=== PATIENT | male | born 1960 | race Caucasian/White ===

== ENCOUNTER 2021-12-11 15:26 | Emergency (ER) | payer OTHER, SELFPAY ==
[2021-12-11 15:44] VITALS: BP 117/92; PULSE 105; RESP 18; TEMP 37.1; O2SAT 97; BMI 34.7
--- NOTE | 2021-12-11 15:49 | DI.RAD.S_ITS ---
PROCEDURE: XR ELBOW LT MIN 3V INDICATIONS: elbow vs metal bar TECHNIQUE: 3 views of the elbow were acquired. COMPARISON: None. FINDINGS: Bones: No fractures or dislocations. No suspicious bony lesions. Enthesophyte noted at the insertion of the triceps on the olecranon process Soft tissues: No elbow joint effusion. No suspicious soft tissue calcifications. Soft tissues swelling noted over the olecranon IMPRESSION: Soft tissue swelling without fracture or foreign body Approved by: Geo Flores M.D. on 12/11/2021 at 15:57
[2021-12-11 16:45] LABS: Add Manual Diff / Slide Review NO; Alanine Aminotransferase 66 IU/L (<50); Albumin 4.8 g/dL (3.5-5.0); Albumin Globulin Ratio 1.4 (1.0-2.8); Alkaline Phosphatase 71 U/L (38-126); Aspartate Aminotransferase 49 IU/L (17-59); BUN Creatinine Ratio 20.8 (6-22); Basophils Absolute Auto 100 /uL (0-100); Bilirubin Total 0.9 mg/dL (0.2-1.3); Blood Urea Nitrogen 15 mg/dL (9-20); Calcium 9.2 mg/dL (8.4-10.2); Carbon Dioxide 25 mmol/L (22-32); Chloride 98 mmol/L (98-107); Eosinophils Absolute Auto 600 /uL (0-450); Eosinophils Percent Auto 4.4 % (2-4); Estimated Glomerular Filt Rate > 60 mL/min (>60); Globulin 3.5 g/dL (1.7-4.1); Glucose 112 mg/dL (80-110); HEMOLYSIS < 15 (0-50); Hemoglobin 15.4 g/dL (13.5-17.5); Lipase 159 U/L (23-300); Lymphocytes Absolute Auto 2300 /uL (1100-4500); Lymphocytes Percent Auto 17.6 % (25-40); Mean Corpuscular HGB Conc 35.7 % (30-36); Mean Corpuscular Hemoglobin 31.8 PG (26-34); Mean Corpuscular Volume 89.2 fL (80-100); Monocytes Absolute Auto 1500 /uL (0-900); Monocytes Percent Auto 11.4 % (3-14); Neutrophils Absolute Auto 8600 /uL (1500-7000); Neutrophils Percent Auto 65.6 % (50-75); Platelet Count 291 X10^3/uL (150-400); Potassium 3.6 mmol/L (3.4-5.1); Red Blood Cell Count 4.82 X10^6/uL (4.5-5.9); Red Cell Distribution Width 13.1 % (11.6-14.8); Sodium 136 mmol/L (137-145); Total Protein 8.3 g/dL (6.3-8.2); White Blood Cell Count 13.1 X10^3/uL (4.5-11.0)
[2021-12-11 16:46] LABS: Lactate (Lactic Acid) 1.1 mmol/L (0.7-2.1)
[2021-12-11 17:02] LABS: Procalcitonin 0.06 ng/mL (<0.5)
[2021-12-11] MEDS: LIDOCAINE 2% INJ MDV 2 ML SUBCUT (18:33)
[2021-12-11 20:32] VITALS: BP 152/108; PULSE 102; RESP 18; O2SAT 96
[2021-12-11 20:38] LABS: Erythrocyte Sedimentation Rate 17 MM/HR (0-15)
--- NOTE | 2021-12-11 20:48 | ED.UPPEXIN ---
HPI - Extremity Injury (Upper) <DOROTHY Nguyen - Last Filed: 12/11/21 20:59> General Chief Complaint: Extremity Injury, Upper Stated Complaint: lt elbow pain, swelling, hot Time Seen by Provider: 12/11/21 17:08 Source: patient Mode of arrival: Ambulatory History of Present Illness HPI narrative: 61-year-old, nonsmoker, male presents to the emergency department with complaints of left elbow pain, redness and swelling secondary to hitting his elbow against a steel bar at work 4 days ago. Patient denies any break in the skin or known cause of infection. Patient endorses pain with movement or palpation. Related Data Previous Rx's Medication Instructions Recorded cephalexin 500 mg capsule 1,000 mg PO BID cellulitis 10 days 12/11/21 #40 caps Allergies Allergy/AdvReac Type Severity Reaction Status Date / Time Sulfa (Sulfonamide Allergy Intermediate Hives Verified 12/11/21 15:48 Antibiotics) Review of Systems <DOROTHY Nguyen - Last Filed: 12/11/21 20:59> Review of Systems Narrative: Narrative: GENERAL: Denies chills, fatigue, fever, sweats. See HPI HEENT: Denies sinus pain, ear pain, sore throat, difficulty swallowing, dizziness. RESPIRATORY: Denies dyspnea, cough, wheezing, sputum. CARDIOVASCULAR: Denies chest pain, palpitations, edema. GASTROINTESTINAL: Denies nausea, vomiting, abdominal pain, diarrhea, constipation. : Denies dysuria, frequency, incontinence, hematuria, urinary retention, flank pain. MSK: Endorses redness, swelling and pain of left elbow. SKIN: Denies rash, skin lesions, or pruritis. NEUROLOGIC: Denies weakness, dizziness, headache, numbness, confusion. PSYCHIATRIC: No concerning psychosocial issues. Patient History <DOROTHY Nguyen - Last Filed: 12/11/21 20:59> Social History Smoking Status: Never smoker Smoking Status: Never smoker alcohol intake frequency: 0-2 drinks per day Alcohol type: beer Substance Use Type: does not use Exam <DOROTHY Nguyen - Last Filed: 12/11/21 20:59> Narrative Exam Narrative: Exam Narrative: GENERAL: This is a well-nourished, well-developed patient, in no acute distress HEAD: Atraumatic. Normocephalic. EYES: Pupils equal round and reactive. Extraocular motions intact. No scleral icterus, injection or drainage. ENT: Nose without bleeding, purulent drainage. Throat without erythema, tonsillar hypertrophy or exudate. Airway patent. NECK: Trachea midline. No JVD or lymphadenopathy. Nontender. CARDIOVASCULAR: Regular rate and rhythm without murmurs, peripheral pulses intact, cap refill <2 sec. RESPIRATORY: Breath sounds equal and clear bilaterally. No wheezes, rales, or rhonchi. No cough. No increased respiratory effort. No accessory muscle use. GASTROINTESTINAL: Abdomen soft, non-tender, nondistended without guarding or rebound. No suprapubic pain. MSK: Moves all extremities. Decreased range of motion of left elbow. Site is red, warm and swollen. Neurovascularly intact. NEURO: A&O x 3. SKIN: Warm, dry, no rashes or lesions noted. Initial Vital Signs Initial Vital Signs: Vital Signs Temperature 98.7 F 12/11/21 15:44 Pulse Rate 105 H 12/11/21 15:44 Respiratory Rate 18 12/11/21 15:44 Blood Pressure 117/92 H 12/11/21 15:44 Pulse Oximetry 97 12/11/21 15:44 Oxygen Delivery Method 12/11/21 15:44 Reviewed Extrem Other: ELBOW: There is bruising and swelling but no asymmetry. There is no tenderness to palpation over the olecranon, medial epicondyle, lateral epicondyle. There is generalized soft tissue pain surrounding the left elbow. Sensation grossly intact. Range of motion is limited due to swelling and pain. Range of motion of the shoulder and wrist is intact. Patient is able to pronate and supinate without pain. Resistive strength for flexion and extension is intact. The contralateral elbow exam is unremarkable. <Bharath Arambula DO - Last Filed: 12/11/21 22:49> Initial Vital Signs Initial Vital Signs: Vital Signs Temperature 98.7 F 12/11/21 15:44 Pulse Rate 105 H 12/11/21 15:44 Respiratory Rate 18 12/11/21 15:44 Blood Pressure 117/92 H 12/11/21 15:44 Pulse Oximetry 97 12/11/21 15:44 Oxygen Delivery Method 12/11/21 15:44 Procedures <DOROTHY Nguyen - Last Filed: 12/11/21 20:59> Bursa Procedure Time Out Performed: Yes Side of body: left Site of Procedure: olecranon bursa XRAY Obtained: normal Antisepsis Used: Povidone-Iodine1% Local Anesthetic: lidocaine 2% Amount of anesthesia used (mL): 2 Fluid obtained (mL): 4 Fluid Type: clear Patient Tolerated Procedure: Well Course <DOROTHY Nguyen - Last Filed: 12/11/21 20:59> Orders Ordered: ED Orders 12/11/21 15:49 XR elbow LT min 3V Stat 12/11/21 16:15 CRP [C-Reactive Protein Quant] Stat Complete Blood Count AUTO DIFF Stat Comprehensive Metabolic Panel Stat ESR [Erythrocyte Sedimentation Rate] Stat Lactate (Lactic Acid) Stat Lipase Stat Procalcitonin Stat 12/11/21 16:35 Blood Culture Stat 12/11/21 18:43 Body Fluid Culture Stat Discontinued Medications Lidocaine HCl (Lidocaine 2% Inj Mdv) 2 ml SUBCUT NOW ONE Stop: 12/11/21 18:31 Last Admin: 12/11/21 18:33 Dose: 2 ml Documented By: RL Vital Signs Vital signs: Vital Signs - 8 hr 12/11/21 15:44 12/11/21 20:32 Temperature 98.7 F Pulse Rate 105 H 102 H Respiratory Rate 18 18 Blood Pressure 117/92 H 152/108 H Pulse Oximetry 97 96 Oxygen Delivery Method Room Air Room Air <Bharath Arambula DO - Last Filed: 12/11/21 22:49> Orders Ordered: ED Orders 12/11/21 15:49 XR elbow LT min 3V Stat 12/11/21 16:15 CRP [C-Reactive Protein Quant] Stat Complete Blood Count AUTO DIFF Stat Comprehensive Metabolic Panel Stat ESR [Erythrocyte Sedimentation Rate] Stat Lactate (Lactic Acid) Stat Lipase Stat Procalcitonin Stat 12/11/21 16:35 Blood Culture Stat 12/11/21 18:43 Body Fluid Culture Stat Discontinued Medications Lidocaine HCl (Lidocaine 2% Inj Mdv) 2 ml SUBCUT NOW ONE Stop: 12/11/21 18:31 Last Admin: 12/11/21 18:33 Dose: 2 ml Documented By: RL Vital Signs Vital signs: Vital Signs - 8 hr 12/11/21 15:44 12/11/21 20:32 Temperature 98.7 F Pulse Rate 105 H 102 H Respiratory Rate 18 18 Blood Pressure 117/92 H 152/108 H Pulse Oximetry 97 96 Oxygen Delivery Method Room Air Room Air MDM - Extremity Injury (Upper) <Bharath DOROTHY Barrios - Last Filed: 12/11/21 20:59> Differential Diagnosis Differential diagnosis: Likely other (Septic bursitis) Lab Data Result diagrams: 12/11/21 16:15 12/11/21 16:15 Labs: Lab Results 12/11/21 12/11/21 12/11/21 Range/Units 16:15 16:15 16:15 WBC 13.1 H (4.5-11.0) X10^3/uL RBC 4.82 (4.5-5.9) X10^6/uL Hgb 15.4 (13.5-17.5) g/dL Hct 43.0 (41-53) % MCV 89.2 (80-100) fL MCH 31.8 (26-34) PG MCHC 35.7 (30-36) % RDW 13.1 (11.6-14.8) % Plt Count 291 (150-400) X10^3/uL Neut % (Auto) 65.6 (50-75) % Lymph % (Auto) 17.6 L (25-40) % [place] % (Auto) 11.4 (3-14) % Eos % (Auto) 4.4 H (2-4) % Baso % (Auto) 1.0 (0-2) % Neut # (Auto) 8600 H (8140-6956) /uL Lymph # (Auto) 2300 (6649-8080) /uL [place] # (Auto) 1500 H (0-900) /uL Eos # (Auto) 600 H (0-450) /uL Baso # (Auto) 100 (0-100) /uL ESR (0-15) MM/HR Sodium 136 L (137-145) mmol/L Potassium 3.6 (3.4-5.1) mmol/L Chloride 98 (98-107) mmol/L Carbon Dioxide 25 (22-32) mmol/L BUN 15 (9-20) mg/dL Creatinine 0.72 (0.66-1.25) mg/dL Estimated GFR > 60 (>60) mL/min BUN/Creatinine Ratio 20.8 (6-22) Glucose 112 H (80-110) mg/dL Lactate 1.1 (0.7-2.1) mmol/L Calcium 9.2 (8.4-10.2) mg/dL Total Bilirubin 0.9 (0.2-1.3) mg/dL AST 49 (17-59) IU/L ALT 66 H (<50) IU/L Alkaline Phosphatase 71 (38-126) U/L C-Reactive Protein (<1.0) mg/dL Total Protein 8.3 H (6.3-8.2) g/dL Albumin 4.8 (3.5-5.0) g/dL Globulin 3.5 (1.7-4.1) g/dL Albumin/Globulin Ratio 1.4 (1.0-2.8) Lipase 159 (23-300) U/L Procalcitonin 0.06 (<0.5) ng/mL 12/11/21 12/11/21 Range/Units 16:15 16:15 WBC (4.5-11.0) X10^3/uL RBC (4.5-5.9) X10^6/uL Hgb (13.5-17.5) g/dL Hct (41-53) % MCV (80-100) fL MCH (26-34) PG MCHC (30-36) % RDW (11.6-14.8) % Plt Count (150-400) X10^3/uL Neut % (Auto) (50-75) % Lymph % (Auto) (25-40) % [place] % (Auto) (3-14) % Eos % (Auto) (2-4) % Baso % (Auto) (0-2) % Neut # (Auto) (5925-1382) /uL Lymph # (Auto) (1624-9352) /uL [place] # (Auto) (0-900) /uL Eos # (Auto) (0-450) /uL Baso # (Auto) (0-100) /uL ESR 17 H (0-15) MM/HR Sodium (137-145) mmol/L Potassium (3.4-5.1) mmol/L Chloride (98-107) mmol/L Carbon Dioxide (22-32) mmol/L BUN (9-20) mg/dL Creatinine (0.66-1.25) mg/dL Estimated GFR (>60) mL/min BUN/Creatinine Ratio (6-22) Glucose (80-110) mg/dL Lactate (0.7-2.1) mmol/L Calcium (8.4-10.2) mg/dL Total Bilirubin (0.2-1.3) mg/dL AST (17-59) IU/L ALT (<50) IU/L Alkaline Phosphatase (38-126) U/L C-Reactive Protein 5.0 H (<1.0) mg/dL Total Protein (6.3-8.2) g/dL Albumin (3.5-5.0) g/dL Globulin (1.7-4.1) g/dL Albumin/Globulin Ratio (1.0-2.8) Lipase (23-300) U/L Procalcitonin (<0.5) ng/mL Imaging Data Extremity x-ray #1: Radiologist's Impression: [address] [address] XRay Report Signed Patient: Patrick Arora MR#: [id number] : 1960 Acct:[id number] Age/Sex: 61 / M Date of Service: 12/11/21 Loc: ED Accession Number: [id number] ?? Procedure: XR elbow LT min 3V Ordering Provider: Harsh Burden MD PROCEDURE:? XR ELBOW LT MIN 3V ? INDICATIONS:? elbow vs metal bar ? TECHNIQUE:? 3 views of the elbow were acquired.? ? COMPARISON:? None. ? FINDINGS:? ? Bones:? No fractures or dislocations.? No suspicious bony lesions.? Enthesophyte noted at the insertion of the triceps on the olecranon process ? Soft tissues:? No elbow joint effusion.? No suspicious soft tissue calcifications.? Soft tissues swelling noted over the olecranon ? ? IMPRESSION:? ? Soft tissue swelling without fracture or foreign body ? ? ? Approved by: Geo Flores M.D. on 12/11/2021 at 15:57? [facility] Narrative Medical decision making narrative: 61-year-old male that presents to the emergency department with left elbow redness, swelling and pain. 4 mL of serosanguineous fluid drainage from left elbow. Labs revealed elevated WBC, ESR and CRP. We will treat for septic bursitis with cephalexin for 10 days. L and I paperwork completed. Discussed plan of care and return precautions with patient, who was agreeable with course of action. <Bharath Arambula, DO - Last Filed: 12/11/21 22:49> Lab Data Labs: Lab Results 12/11/21 12/11/21 12/11/21 Range/Units 16:15 16:15 16:15 WBC 13.1 H (4.5-11.0) X10^3/uL RBC 4.82 (4.5-5.9) X10^6/uL Hgb 15.4 (13.5-17.5) g/dL Hct 43.0 (41-53) % MCV 89.2 (80-100) fL MCH 31.8 (26-34) PG MCHC 35.7 (30-36) % RDW 13.1 (11.6-14.8) % Plt Count 291 (150-400) X10^3/uL Neut % (Auto) 65.6 (50-75) % Lymph % (Auto) 17.6 L (25-40) % [place] % (Auto) 11.4 (3-14) % Eos % (Auto) 4.4 H (2-4) % Baso % (Auto) 1.0 (0-2) % Neut # (Auto) 8600 H (5973-4864) /uL Lymph # (Auto) 2300 (7558-3236) /uL [place] # (Auto) 1500 H (0-900) /uL Eos # (Auto) 600 H (0-450) /uL Baso # (Auto) 100 (0-100) /uL ESR (0-15) MM/HR Sodium 136 L (137-145) mmol/L Potassium 3.6 (3.4-5.1) mmol/L Chloride 98 (98-107) mmol/L Carbon Dioxide 25 (22-32) mmol/L BUN 15 (9-20) mg/dL Creatinine 0.72 (0.66-1.25) mg/dL Estimated GFR > 60 (>60) mL/min BUN/Creatinine Ratio 20.8 (6-22) Glucose 112 H (80-110) mg/dL Lactate 1.1 (0.7-2.1) mmol/L Calcium 9.2 (8.4-10.2) mg/dL Total Bilirubin 0.9 (0.2-1.3) mg/dL AST 49 (17-59) IU/L ALT 66 H (<50) IU/L Alkaline Phosphatase 71 (38-126) U/L C-Reactive Protein (<1.0) mg/dL Total Protein 8.3 H (6.3-8.2) g/dL Albumin 4.8 (3.5-5.0) g/dL Globulin 3.5 (1.7-4.1) g/dL Albumin/Globulin Ratio 1.4 (1.0-2.8) Lipase 159 (23-300) U/L Procalcitonin 0.06 (<0.5) ng/mL 12/11/21 12/11/21 Range/Units 16:15 16:15 WBC (4.5-11.0) X10^3/uL RBC (4.5-5.9) X10^6/uL Hgb (13.5-17.5) g/dL Hct (41-53) % MCV (80-100) fL MCH (26-34) PG MCHC (30-36) % RDW (11.6-14.8) % Plt Count (150-400) X10^3/uL Neut % (Auto) (50-75) % Lymph % (Auto) (25-40) % [place] % (Auto) (3-14) % Eos % (Auto) (2-4) % Baso % (Auto) (0-2) % Neut # (Auto) (7693-2724) /uL Lymph # (Auto) (0745-1431) /uL [place] # (Auto) (0-900) /uL Eos # (Auto) (0-450) /uL Baso # (Auto) (0-100) /uL ESR 17 H (0-15) MM/HR Sodium (137-145) mmol/L Potassium (3.4-5.1) mmol/L Chloride (98-107) mmol/L Carbon Dioxide (22-32) mmol/L BUN (9-20) mg/dL Creatinine (0.66-1.25) mg/dL Estimated GFR (>60) mL/min BUN/Creatinine Ratio (6-22) Glucose (80-110) mg/dL Lactate (0.7-2.1) mmol/L Calcium (8.4-10.2) mg/dL Total Bilirubin (0.2-1.3) mg/dL AST (17-59) IU/L ALT (<50) IU/L Alkaline Phosphatase (38-126) U/L C-Reactive Protein 5.0 H (<1.0) mg/dL Total Protein (6.3-8.2) g/dL Albumin (3.5-5.0) g/dL Globulin (1.7-4.1) g/dL Albumin/Globulin Ratio (1.0-2.8) Lipase (23-300) U/L Procalcitonin (<0.5) ng/mL Discharge Plan Departure Patient Disposition: Home Clinical Impression: Cellulitis of left elbow Instructions: DI for Cellulitis -- Adult Activity Restrictions/Additional Instructions: *You have been diagnosed with left elbow cellulitis. I am concerned that this could possibly be a septic bursitis. We will contact you with the results of the synovial fluid test. I am sending you home with antibiotics, to be completed in its entirety. Take Tylenol or ibuprofen as needed for discomfort. Please follow-up with your family doctor on Tuesday. For worsening symptoms, please return to the emergency department. *What to do: *Please continue to take your regular medications as directed. [ x] New medication prescriptions sent to your pharmacy: [[facility] [place]] [ ] New medication written as a paper prescription [ ] No new medications given *Please follow up with your primary care provider in 2-3 days, call for an appointment. Let them know you were seen in the Emergency Department and that we ask that you be seen in follow up. We will electronically transmit a record of today's note if your PCP is in our system *If you do not have a primary care provider please contact the [facility] Resource line at [phone]. They will ask some questions about your medical history and help get you set up with a doctor in the community. ? Return to ER if you should have any new, worsening or concerning symptoms, such as worsening pain, severe headache, confusion, chest pain, difficulty breathing, fever greater than 101 F, shaking chills, persistent vomiting to the point that you cannot drink fluids, or other new or worsening symptoms. Prescriptions: New cephalexin 500 mg capsule 1,000 mg PO BID 10 Days Qty: 40 0RF Visit Report Forms: Patient Portal/API <Bharath Arambula, DO - Last Filed: 12/11/21 22:49> Cosign ED Attending Cosignature Attestation: Dr Arambula Co-Sign Statement: I was available for consultation during this patient's emergency department visit. This chart is signed by myself for administrative purposes only. I did not have direct contact with this patient during this visit. They were seen independently by the APC.
== END 2021-12-11 20:34 | disposition home or self-care (01) ==
PROVIDERS: Emergency Medicine; Emergency Provider Registered Nurse
DX: L03.114 Cellulitis of left upper limb (principal)
CPT/HCPCS: 20605; 36415; 73080; 80053; 83605; 83690; 84145; 85025; 85651; 86140; 87040; 87070; 87075; 87205; 99283; 99284